=== PATIENT | male | born 1960 | race Two or more races ===

== ENCOUNTER 2021-08-03 08:02 | Day surgery (SDC) | payer MEDICAID ==
[2021-07-28 17:02] LABS: CLARITY,URINE SLIGHTLY CLOUDY (Clear); COLOR,URINE YELLOW (Yellow); GLUCOSE, URINE NEGATIVE (Neg); KETONES,URINE NEGATIVE (Neg); LEUKOCYTE ESTERASE ,URINE NEGATIVE (Neg); NITRITES, URINE NEGATIVE (Neg); OCCULT BLOOD,URINE NEGATIVE (Neg); PROTEIN,URINE NEGATIVE (Neg); UROBILINOGEN,URINE 0.2 E.U/dL (0.2-1.0)
[2021-07-28 17:05] LABS: BASOPHILS # (AUTO) 0.1 X10'3 (0-0.2); BASOPHILS % (AUTO) 0.8 % (0-1); EOSINOPHILS # (AUTO) 0.4 X10'3 (0-0.9); EOSINOPHILS % (AUTO) 5.8 % (0-6); LYMPHOCYTES # (AUTO) 1.8 X10'3 (1.1-4.8); MEAN CORPUSCULAR HEMOGLOBIN 29.5 PG (27.0-31.0); MEAN CORPUSCULAR HGB CONC 33.8 g/dL (33.0-36.5); MEAN CORPUSCULAR VOLUME 87.1 FL (78-98); MEAN PLATELET VOLUME 8.6 FL (7.4-10.4); MONOCYTES # (AUTO) 0.7 X10'3 (0-0.9); MONOCYTES % (AUTO) 10.6 % (2-12); NEUTROPHILS # (AUTO) 3.5 X10'3 (1.8-7.7); NEUTROPHILS % (AUTO) 54.8 % (42-75); PRE OP HEMATOCRIT 45.5 % (42.0-52.0); PRE OP HEMOGLOBIN 15.4 g/dL (14.0-17.9); PRE OP PLATELET COUNT 212 X10'3 (140-440); RED BLOOD COUNT 5.23 X10'6 (4.70-6.10); RED CELL DISTRIBUTION WIDTH 14.2 % (11.5-14.5)
[2021-07-28 17:08] LABS: UA COLLECTION TYPE NON-SPECIFIED
[2021-07-28 17:09] LABS: MUCUS STRANDS FEW /LPF (Neg); SQUAMOUS EPITHELIAL CELL,UR FEW /LPF (FEW)
[2021-07-28 17:10] LABS: BACTERIA,URINE 1+ /HPF (Neg); RBC,URINE 0-2 /HPF (0-2); WBC,URINE 0-4 /HPF (0-4)
[2021-07-28 17:19] LABS: ALBUMIN 4.2 G/DL (3.4-5.0); ALBUMIN/GLOBULIN RATIO 1.1 (1.1-1.5); ALKALINE PHOSPHATASE 125 IU/L (46-116); BLOOD UREA NITROGEN 20 MG/DL (7-18); BUN/CREATININE RATIO 25.6 (5.4-32.0); CALCIUM 8.4 MG/DL (8.5-10.1); CHLORIDE 107 MMOL/L (99-107); CREATININE 0.78 MG/DL (0.60-1.10); PRE OP ALT 44 U/L (30-65); PRE OP BILIRUB, TOTAL 0.3 MG/DL (0.0-1.0); TOTAL CARBON DIOXIDE 24.9 MMOL/L (24-32); eGFR > 90 ML/MIN
[2021-07-28 17:42] LABS: PRE OP AST 29 U/L (10-37); PRE OP GLUCOSE 118 MG/DL (70-104)
[2021-07-28 17:45] LABS: PRE OP ANION GAP 6 (8-16); PRE OP POTASSIUM 3.9 MMOL/L (3.4-5.1); PRE OP SODIUM 138 MMOL/L (135-145)
[~2021-08-03] VITALS: Ht 172.7 cm; Wt 82.5 kg
[2021-08-03] VITALS (9 sets, daily range): BP systolic 141–156; BP diastolic 77–95
[~2021-08-03 08:02] MED LIST: BUPIVAcaine 0.5% inj/PF 30 ML ONE; NO HOME MEDS; cefazolin/dext.iso 2gm/50ml IV ONE; famotidine 20mg tablet PO ONE; ringers solution, lacted 1,000 ML IV SCH
[2021-08-03] MEDS ORDERED: midazolam 1 mg/ML 2ml injection ONE (12:09)
[2021-08-03] MEDS ORDERED: meperidine/PF 50mg/ml syringe ONE (12:09)
[2021-08-03] MEDS ORDERED: LIDOcaine 2% (20mg/ml) 5ml vial ONE (12:20)
[2021-08-03] MEDS ORDERED: propofol inj 20 ML IV ONE (12:20)
[2021-08-03] MEDS ORDERED: ondansetron/PF 4mg/2ml inj ONE (12:20)
[2021-08-03] MEDS ORDERED: dexamethasone sod phosphate 4mg/ml inj. ONE (12:21)
[2021-08-03] MEDS ORDERED: neostigmine methylsulfate 1 MG/ML 10ml vial ONE (12:22)
[2021-08-03] MEDS ORDERED: glycopyrrolate 0.2mg/ml inj ONE (12:22)
[2021-08-03] MEDS ORDERED: BUPIVAcaine 0.5% inj/PF 30 ml vial IJ ONE (12:34)
[2021-08-03] MEDS ORDERED: fentaNYL/PF 50MCG/1 ML 2ML syringe IV PRN ×2 (12:45)
[2021-08-03] MEDS ORDERED: ringers solution, lacted 1,000 ML IV SCH (12:45)
[2021-08-03] MEDS ORDERED: hydrALAZINE 20mg/ml inj. IV PRN (12:45)
[2021-08-03] MEDS ORDERED: morphine 4 MG/ML inj SYRINge IV PRN (12:45)
[2021-08-03] MEDS ORDERED: morphine 2 MG/ML inj. syringe IV PRN (12:45)
[2021-08-03] MEDS ORDERED: ondansetron/PF 4mg/2ml inj IV PRN (12:45)
[2021-08-03] MEDS ORDERED: enalaprilat dihydrate 2.5mg/2ml vial IV PRN (12:45)
--- NOTE | 2021-08-03 13:05 | NUR ---
Received from OR via BED, accompanied by Anesthesiologist and report given by Anesthesiologist. PATIENT WAKING UP, NO S/S OF PAIN, V/S WNL, SCD ON, 20G TO LUE, ABDOMEN LAP SITE CLEAN W/ NO S/S OF COMPLICATIONS
[2021-08-03] MEDS ORDERED: HYDROcodone/acetaminophen 10/325mg tab PO ONE (13:20)
--- NOTE | 2021-08-03 14:35 | NUR ---
PATIENT A&OX4, STATES PAIN CONTROLLED, V/S WNL, SCD ON, 20G TO LUE D/C, ABDOMEN LAP SITE CLEAN W/ NO S/S OF COMPLICATIONS. . I HAVE REVIEWED D/C INSTRUCTIONS WITH PATIENT and they have verbalized understanding patient d/c home with all belongings and family gave transport home.
== END 2021-08-03 14:35 | disposition home or self-care (01) ==
LOC: PAS 08:02
PROVIDERS: ATTEND Surgery
DX: K42.0 Umbilical hernia with obstruction, without gangrene (principal); Z20.822 Contact with and (suspected) exposure to COVID-19; Z87.891 Personal history of nicotine dependence; Z79.899 Other long term (current) drug therapy; Z98.890 Other specified postprocedural states
CPT/HCPCS: 36415; 49653; 80053; 81001; 82948; 85025; 93005; C1781; J1100; J2175; J2250; J2405; J2704; J2710; J3490; J7030; J7120; S0020; U0003; U0005; Z7506; Z7512; A4618; A7000